=== PATIENT | female | born 1995 | race Native Hawaiian/Other Pacific Islander ===

== ENCOUNTER 2017-06-01 00:46 | Emergency (ER) | payer OTHER ==
[~2017-06-01] VITALS: Ht 160 cm; Wt 59.1 kg
[2017-06-01 00:58] VITALS: BP 114/85; PULSE 75; TEMP 97.8
[2017-06-01] MEDS ORDERED: SEPTRA DS 8001 TAB PO (01:29)
== END 2017-06-01 01:56 | disposition home or self-care (01) ==
LOC: COL.ER 00:46
DX: L08.9 Local infection of the skin and subcutaneous tissue, unspecified (principal); Z88.1 Allergy status to other antibiotic agents